=== PATIENT | male | born 1995 | race Caucasian/White ===

== ENCOUNTER → 2020-12-26 | Outpatient (CLI) | payer OTHER ==
--- NOTE | 2020-12-26 13:33 | MR ---
EXAMINATION TYPE: MR lumbar spine wo con DATE OF EXAM: 12/26/2020 COMPARISON: None HISTORY: Lower back pain TECHNIQUE: Multiplanar, multisequence images of the lumbar spine were acquired. L1-L2: Normal disc appearance without desiccation. No herniation, protrusion or disc bulging. No ca nal stenosis is present. Foramina are patent bilaterally. L2-L3: Normal disc appearance without desiccation. No herniation, protrusion or disc bulging. No ca nal stenosis is present. Foramina are patent bilaterally. L3-L4: Normal disc appearance without desiccation. No herniation, protrusion or disc bulging. No ca nal stenosis is present. Foramina are patent bilaterally. L4-L5: Normal disc appearance without desiccation. No herniation, protrusion or disc bulging. No ca nal stenosis is present. Foramina are patent bilaterally. L5-S1: There is loss of disc height signal at L5-S1, posterior disc herniation is present extending i n the left posterior paracentral location, right posterior paracentral location possibly contacting t he proximal S1 nerve roots. Lumbar segments are intact. No paraspinal masses are identified. Conus medullaris has a normal appe arance. The vertebral bodies show preserved height and alignment. IMPRESSION: Disc herniation L5-S1, correlate for left or right S1 radiculopathy.
== END | disposition home or self-care (01) ==
LOC: RADMRIMAIN 09:18
PROVIDERS: ATTEND Orthopaedic Surgery
DX: M51.27 Other intervertebral disc displacement, lumbosacral region (principal); M47.817 Spondylosis without myelopathy or radiculopathy, lumbosacral region
CPT/HCPCS: 72148

== ENCOUNTER 2023-01-26 20:02 | Emergency (ER) | payer OTHER ==
--- NOTE | 2023-01-26 20:44 | ED ---
General Adult HPI - General Stated complaint: chest pain-[facility] Time Seen by Provider: 01/26/23 20:42 Source: RN notes reviewed - History of Present Illness Initial comments: 27 year old male with no significant past medical history presents to the nearest emergency department with right sided chest pain and arm pain that happened while he was working with coil at work. He heard a loud "pop." pain is worse with movement. He has not taken anything for his symptoms prior to arrival. He denies any chest pain, shortness of breath, dyspnea, numbness, tingling, weakness in the extremity. - Related Data Previous Rx's Medication Instructions Recorded Ibuprofen [Motrin] 800 mg PO Q6HR #30 tab 01/26/23 Allergies Allergy/AdvReac Type Severity Reaction Status Date / Time bee venom protein (honey bee) Allergy Unknown Verified 01/26/23 20:46 Penicillins Allergy Unknown Verified 01/26/23 20:46 Review of Systems ROS Statement: Those systems with pertinent positive or pertinent negative responses have been documented in the HPI. ROS Other: All systems not noted in ROS Statement are negative. General Exam - General Exam Comments Initial Comments: Visual Physical Exam Vital signs reviewed General: Well-appearing, nontoxic, no acute distress. Head: Normocephalic, atraumatic Eyes: PERRLA, EOMI ENT: Airway patent Chest: Nonlabored breathing Skin: No visual rash, normal skin tone Neuro: Alert and oriented 3 Musculoskeletal: No gross abnormalities I performed the quick note portion of this exam, verbal signature Liz Bhandari PA-C General: Alert, in no acute distress Head: atraumatic normocephalic. Eyes PERRL, EOMI intact, mucous membranes moist Respiratory: Lungs clear to auscultation bilaterally Cardiovascular: Heart rate regular rate and rhythm Abdominal: Soft without guarding or rebound Extremities: Normal inspection with full range of motion and normal capillary refill, right shoulder without any evidence of deformity or ecchymosis. Mild tenderness to right pectoral muscle with palpation. Limited range of motion secondary to pain. Neuroogic: alert and oriented 3, CN II-XII intact, able to ambulate with steady gait Skin: warm dry and intact with normal color Course Vital Signs 01/26/23 01/26/23 20:43 22:10 Temperature 98.1 F Pulse Rate 65 62 Respiratory 18 18 Rate Blood Pressure 153/92 139/86 O2 Sat by Pulse 98 99 Oximetry Medical Decision Making - Medical Decision Making Was pt. sent in by a medical professional or institution (JENNIFER Simon, [employer], urgent care, hospital, or fdc...) When possible be specific @ -[No] Did you speak to anyone other than the patient for history (EMS, parent, family, police, friend...)? What history was obtained from this source @ -[No] Did you review nursing and triage notes (agree or disagree)? Why? @ -[I reviewed and agree with nursing and triage notes] Were old charts reviewed (outside hosp., previous admission, EMS record, old EKG, old radiological studies, urgent care reports/EKG's, fdc records)? Report findings @ -[No old charts were reviewed] Differential Diagnosis (chest pain, altered mental status, abdominal pain women, abdominal pain men, vaginal bleeding, weakness, fever, dyspnea, syncope, headache, dizziness, GI bleed, back pain, seizure, CVA, palpatations, mental health, musculoskeletal)? @ -[not applicable] EKG interpreted by me (3pts min.). @ -[As above] X-rays interpreted by me (1pt min.). @ -Chest x-ray does not reveal any evidence of acute pleural process or pneumothorax CT interpreted by me (1pt min.). @ -[None done] U/S interpreted by me (1pt. min.). @ -[None done] What testing was considered but not performed or refused? (CT, X-rays, U/S, labs)? Why? @ -[None] What meds were considered but not given or refused? Why? @ -[None] Did you discuss the management of the patient with other professionals (professionals i.e. JENNIFER Simon, MOTORCYCLE DESIGNER, lab, RT, psych nurse, social media assistant, county health officer, teacher, staff combat information center officer, rehabilitation case coordinator)? Give summary @ -[No] Was smoking cessation discussed for >3mins.? @ -[No] Was critical care preformed (if so, how long)? @ -[No] Were there social determinants of health that impacted care today? How? (Homelessness, low income, unemployed, alcoholism, drug addiction, transportation, low edu. Level, literacy, decrease access to med. care, fpc, rehab)? @ -[No] Was there de-escalation of care discussed even if they declined (Discuss DNR or withdrawal of care, Hospice)? DNR status @ -[No] What co-morbidities impacted this encounter? (DM, HTN, Smoking, COPD, CAD, Cancer, CVA, ARF, Chemo, Hep., AIDS, mental health diagnosis, sleep apnea, morbid obesity)? @ -[None] Was patient admitted / discharged? Hospital course, mention meds given and route, prescriptions, significant lab abnormalities, going to OR and other pertinent info. @ -Discharged. This is a pleasant 27-year-old male presents emergency Department with right chest pain. Patient had a thorough history and physical exam performed while in the ED. Right shoulder without any obvious deformity. Limited rotation range of motion secondary to pain. Patient had lab work and imaging which was negative. I discussed the results in detail with the patient verbalized understanding and all questions were addressed. Patient was given Motrin. Patient was placed in a sling. Agreeable with the plan for discharge home. Case discussed with Dr. Nix [facility] who agrees with plan of care Undiagnosed new problem with uncertain prognosis? @ -[No] Drug Therapy requiring intensive monitoring for toxicity (Heparin, Nitro, Insulin, Cardizem)? @ -[No] Were any procedures done? @ -[No] Diagnosis/symptom? @ -Right Shoulder Pain Acute, or Chronic, or Acute on Chronic? @ -Acute Uncomplicated (without systemic symptoms) or Complicated (systemic symptoms)? @ -Uncomplicated Side effects of treatment? @ -[No] Exacerbation, Progression, or Severe Exacerbation? @ -[No] Poses a threat to life or bodily function? How? (Chest pain, [place], [place], pneumonia, PE, COPD, DKA, ARF, appy, cholecystitis, CVA, Diverticulitis, Homicidal, Suicidal, threat to staff... and all critical care pts) @ -Low likelihood Disposition Clinical Impression: Strain of right pectoralis muscle Disposition: HOME SELF-CARE Condition: Stable Instructions (If sedation given, give patient instructions): Muscle Strain (ED), Musculoskeletal Pain (ED) Additional Instructions: Please keep arm immobilized in shoulder sling during the day. Do not sleep in sling These take Tylenol or Motrin for pain return to the nearest emergency department if symptoms worsen or persist Prescriptions: Ibuprofen [Motrin] 800 mg PO Q6HR #30 tab Is patient prescribed a controlled substance at d/c from ED?: No Referrals: None,Stated [Primary Care Provider] - 1-2 days Telly Horowitz DO [Doctor of Osteopathic Medicine] - 1-2 days Time of Disposition: 22:02
[2023-01-26 20:46] VITALS: RESP 18; TEMP 98.1
--- NOTE | 2023-01-26 21:18 | XR ---
EXAMINATION TYPE: XR chest 2V DATE OF EXAM: 01/26/2023 COMPARISON: None INDICATION: Chest pain TECHNIQUE: Frontal and lateral views of the chest are obtained. FINDINGS: The heart size is normal. The pulmonary vasculature is normal. The lungs are clear. IMPRESSION: 1. No acute pulmonary process.
[2023-01-26] MEDS ORDERED: IBUPROFEN 800 MG TAB PO STA (21:52)
[2023-01-26 22:14] VITALS: BP 139/86; PULSE 62
== END 2023-01-26 22:17 | disposition home or self-care (01) ==
LOC: EC 20:02
DX: S29.011A Strain of muscle and tendon of front wall of thorax, initial encounter (principal); Z88.0 Allergy status to penicillin; Z91.030 Bee allergy status; X58.XXXA Exposure to other specified factors, initial encounter
CPT/HCPCS: 71046; 99284

== ENCOUNTER → 2024-10-22 | Outpatient (CLI) | payer OTHER ==
--- NOTE | 2024-10-22 17:30 | FL ---
EXAMINATION TYPE: FL arthrogram shoulder RT DATE OF EXAM: 10/22/2024 3:39 PM COMPARISON: None CLINICAL INDICATION: Male, 29 years old with history of M25.511 PAIN IN RIGHT SHOULDER; [facility] TECHNIQUE/PROCEDURE: This study was performed by Dr. Kim. After the procedure was explained and i nformed consent was obtained from the patient, the patient was prepped and draped in the usual steril e fashion. 1% Lidocaine was used as local anesthetic using a 25 gauge needle. A 25 gauge needle was t hen advanced into the glenohumeral joint using fluoroscopic guidance. Approximately 10 cc of contrast was injected into the joint (an admixture of Gadavist, Isovue 370, and sterile saline). The needle was then removed and a Band-Aid was applied. The patient tolerated procedure well. The patient was then sent to the MR unit for an MRI exam. Radiographs taken: 3 DAP: Not reported. FINDINGS: Contrast was seen filling the glenohumeral joint initially. As the contrast filled the inge nt note was made of filling of the subcoracoid bursa. No extracapsular contrast collections were not ed. IMPRESSION: Successful right shoulder arthrogram. MRI right shoulder report to follow. [facility], , 10/22/2024 5:28 PM
--- NOTE | 2024-10-23 20:50 | MR ---
EXAMINATION TYPE: MR shoulder arthrogrm RT w co DATE OF EXAM: 10/22/2024 4:15 PM COMPARISON: 10/22/2024. CLINICAL INDICATION: Male, 29 years old with history of M25.511 PAIN IN RIGHT SHOULDER; [facility], RT shoul edilberto pain, Injury Jan 26, 2023, Hx Thoracic outlet relief 05-02-2024 TECHNIQUE: Multi planar, multi sequence imaging was performed of the shoulder including: Axial and coronal dorothy n density fat-saturated sequences, T2 fat-saturated sagittal sequence, and T1-weighted imaging. No G adolinium was given. FINDINGS: Supraspinatus tendon: High T2 signal near its insertion. No discrete tear identified. Infraspinatus tendon: Intact Subscapularis tendon: Intact Teres minor tendon: Intact Long head biceps tendon: Intact, appropriately positioned within the bicipital groove. Normal ins ertion at the bicipital anchor. Acromioclavicular joint: Normal joint space and alignment. Normal subacromial space. No effusio n. Glenohumeral joint: Normal joint space and alignment. Normal articular cartilage. No effusion. Glenoid labrum: There is an anterior inferior labral tear with paralabral cyst with septations me asuring up to 12 x 8 mm located posterior inferior to the glenoid Muscle volume: Normal. Bone marrow: Normal. Soft tissues: Unremarkable. Joint/bursal fluid: None IMPRESSION: 1. Anterior/Inferior labral tear with paralabral cyst present. 2. No evidence of rotator cuff tear. 3. Supraspinatus tendinosis. [facility], , 10/23/2024 8:48 PM
== END | disposition home or self-care (01) ==
LOC: RADFLMAIN 14:48
PROVIDERS: ATTEND Neuromusculoskeletal Medicine, Sports Medicine
DX: M25.511 Pain in right shoulder (principal)
CPT/HCPCS: 23350; 73040; 73222; A9585; Q9967

== ENCOUNTER 2024-12-22 20:34 | Emergency (ER) | payer OTHER ==
--- NOTE | 2024-12-22 21:14 | ED ---
General Adult HPI - General Chief complaint: Skin/Abscess/Foreign Body Stated complaint: Bee Sting L Elbow, Took Epi Time Seen by Provider: 12/22/24 20:43 Source: patient, RN notes reviewed Mode of arrival: ambulatory Limitations: no limitations - History of Present Illness Initial comments: 29-year-old male presents to the emergency department for allergic reaction. 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 He states that he was stung in the elbow around 5 PM today. He notes that following this he administered his EpiPen. He also took 3 Benadryls. He states that he has been feeling okay. He denies any shortness of breath. He does note some throat irritation. - Related Data Previous Rx's Medication Instructions Recorded Ibuprofen [Motrin] 800 mg PO Q6HR #30 tab 01/26/23 EPINEPHrine (Auto Inject) [Epipen] 0.3 mg IM ONCE PRN #1 each 12/22/24 predniSONE 50 mg PO DAILY #5 tab 12/22/24 Allergies Allergy/AdvReac Type Severity Reaction Status Date / Time bee venom protein (honey bee) Allergy Unknown Verified 12/22/24 20:41 Penicillins Allergy Unknown Verified 12/22/24 20:41 Review of Systems ROS Statement: Those systems with pertinent positive or pertinent negative responses have been documented in the HPI. ROS Other: All systems not noted in ROS Statement are negative. Past Medical History Past Medical History: No Reported History History of Any Multi-Drug Resistant Organisms: None Reported Past Surgical History: Tonsillectomy Additional Past Surgical History / Comment(s): right thoracic outlet surgery Past Psychological History: No Psychological Hx Reported Smoking Status: Current every day smoker Past Alcohol Use History: Rare Past Drug Use History: None Reported General Exam Limitations: no limitations General appearance: alert, in no apparent distress Head exam: Present: atraumatic, normocephalic, normal inspection Eye exam: Present: normal appearance, PERRL, EOMI. Absent: scleral icterus, conjunctival injection, periorbital swelling ENT exam: Present: normal exam, normal oropharynx, mucous membranes moist Neck exam: Present: normal inspection. Absent: tenderness, meningismus, lymphadenopathy Respiratory exam: Present: normal lung sounds bilaterally. Absent: respiratory distress, wheezes, rales, rhonchi, stridor Cardiovascular Exam: Present: regular rate, normal rhythm, normal heart sounds. Absent: systolic murmur, diastolic murmur, rubs, gallop, clicks Extremities exam: Present: normal inspection, full ROM, normal capillary refill. Absent: tenderness, pedal edema, joint swelling, calf tenderness Back exam: Present: normal inspection Neurological exam: Present: alert, oriented X3 Psychiatric exam: Present: normal affect, normal mood Skin exam: Present: warm, dry, intact, normal color. Absent: rash Course Vital Signs 12/22/24 12/22/24 20:36 22:22 Temperature 98 F Pulse Rate 100 76 Respiratory 18 18 Rate Blood Pressure 159/99 142/76 O2 Sat by Pulse 98 98 Oximetry Medical Decision Making - Medical Decision Making Was pt. sent in by a medical professional or institution (, JENNIFER, [facility], urgent care, hospital, or retirement...) When possible be specific @ -[No] Did you speak to anyone other than the patient for history (EMS, parent, family, police, friend...)? What history was obtained from this source @ -[No] Did you review nursing and triage notes (agree or disagree)? Why? @ -[I reviewed and agree with nursing and triage notes] Were old charts reviewed (outside hosp., previous admission, EMS record, old EKG, old radiological studies, urgent care reports/EKG's, retirement records)? Report findings @ -[No old charts were reviewed] Differential Diagnosis (chest pain, altered mental status, abdominal pain women, abdominal pain men, vaginal bleeding, weakness, fever, dyspnea, syncope, headache, dizziness, GI bleed, back pain, seizure, CVA, palpatations, mental health, musculoskeletal)? @ -[not applicable] EKG interpreted by me (3pts min.). @ -[As above] X-rays interpreted by me (1pt min.). @ -[None done] CT interpreted by me (1pt min.). @ -[None done] U/S interpreted by me (1pt. min.). @ -[None done] What testing was considered but not performed or refused? (CT, X-rays, U/S, labs)? Why? @ -[None] What meds were considered but not given or refused? Why? @ -[None] Did you discuss the management of the patient with other professionals (professionals i.e. Dr., PA, COOK CANDY, lab, RT, psych nurse, social services, developer prover mechanical, teacher, stream control officer, keycase assembler)? Give summary @ -[No] Was smoking cessation discussed for >3mins.? @ -[No] Was critical care preformed (if so, how long)? @ -[No] Were there social determinants of health that impacted care today? How? (Homelessness, low income, unemployed, alcoholism, drug addiction, transportation, low edu. Level, literacy, decrease access to med. care, snf, rehab)? @ -[No] Was there de-escalation of care discussed even if they declined (Discuss DNR or withdrawal of care, Hospice)? DNR status @ -[No] What co-morbidities impacted this encounter? (DM, HTN, Smoking, COPD, CAD, Cancer, CVA, ARF, Chemo, Hep., AIDS, mental health diagnosis, sleep apnea, mo rbid obesity)? @ -[None] Was patient admitted / discharged? Hospital course, mention meds given and route, prescriptions, significant lab abnormalities, going to OR and other pertinent info. @ -[hospital course] Undiagnosed new problem with uncertain prognosis? @ -[No] Drug Therapy requiring intensive monitoring for toxicity (Heparin, Nitro, Insulin, Cardizem)? @ -[No] Were any procedures done? @ -[No] Diagnosis/symptom? @ -[default] Acute, or Chronic, or Acute on Chronic? @ -[default] Uncomplicated (without systemic symptoms) or Complicated (systemic symptoms)? @ -[default] Side effects of treatment? @ -[No] Exacerbation, Progression, or Severe Exacerbation? @ -[No] Poses a threat to life or bodily function? How? (Chest pain, [place], [place], pneumonia, PE, COPD, DKA, ARF, appy, cholecystitis, CVA, Diverticulitis, Homicidal, Suicidal, threat to staff... and all critical care pts) @ -[No] Disposition Clinical Impression: Allergic reaction Disposition: HOME SELF-CARE Condition: Stable Instructions (If sedation given, give patient instructions): General Allergic Reaction (ED) Prescriptions: EPINEPHrine (Auto Inject) [Epipen] 0.3 mg IM ONCE PRN #1 each PRN Reason: Anaphylaxis predniSONE 50 mg PO DAILY #5 tab Is patient prescribed a controlled substance at d/c from ED?: No Referrals: Indio Estrada DO [Primary Care Provider] - 1-2 days
[2024-12-22] MEDS: FAMOTIDINE 20 MG/2 ML VIAL IV STA (21:25)
[2024-12-22] MEDS: methylPREDNISolone SOD SUCCI 125 MG/2 ML VIAL IV STA (21:30)
[2024-12-22 23:10] VITALS: BP 140/70; PULSE 85; RESP 17; TEMP 98.1
== END 2024-12-22 23:11 | disposition home or self-care (01) ==
LOC: EC 20:34
DX: T63.441A Toxic effect of venom of bees, accidental (unintentional), initial encounter (principal); F17.200 Nicotine dependence, unspecified, uncomplicated; Z88.0 Allergy status to penicillin; Z91.030 Bee allergy status
CPT/HCPCS: 99282; 96374; 96375; J2919; J1308